=== PATIENT | female | born 1995 | race Caucasian/White ===

== ENCOUNTER 2017-12-12 18:57 | Emergency (ER) | payer OTHER ==
[~2017-12-12] VITALS: Ht 172.7 cm; Wt 78.8 kg
[2017-12-12] MEDS ORDERED: MOTRIN800 MG PO (20:53)
[2017-12-12] MEDS ORDERED: FLEXERIL10 MG PO (20:53)
[2017-12-12 21:03] VITALS: BP 121/78
== END 2017-12-12 21:05 | disposition home or self-care (01) ==
LOC: EME 18:57
DX: M62.838 Other muscle spasm (principal); M62.830 Muscle spasm of back; M25.561 Pain in right knee; M25.562 Pain in left knee; M25.552 Pain in left hip; V43.52XA Car driver injured in collision with other type car in traffic accident, initial encounter; Y92.410 Unspecified street and highway as the place of occurrence of the external cause; F17.200 Nicotine dependence, unspecified, uncomplicated
CPT/HCPCS: 72040; 72070; 72100; 73502; 73564; 99281; 99283